=== PATIENT | male | born 1985 | race Two or more races ===

== ENCOUNTER 2024-02-20 10:38 | Emergency (ER) | payer OTHER ==
[2024-02-20] MEDS: Lidocaine 2% 5 ML SDV INJECT ONE (11:00)
[2024-02-20] MEDS: Diphtheria,Pertussis(Acell),Tetanus Vaccine 0.5 ML Syringe IM ONE (11:00)
[2024-02-20] MEDS: Bacitracin Oint 1 GM U/D Packet TOP ONE (11:12)
[2024-02-20] MEDS ORDERED: Sodium Chloride 0.9% 2.5 ML Syringe FLUSH PRN (11:26)
[2024-02-20] MEDS: ceFAZolin 2 GM in Sodium Chloride 0.9% 50 ML IV ONE (11:36)
[2024-02-20] MEDS: Sodium Chloride 0.9% 10 ML Syringe FLUSH PRN (11:36)
== END 2024-02-20 12:20 | disposition home or self-care (01) ==
LOC: MW.ED 10:38
DX: S62.627A Displaced fracture of middle phalanx of left little finger, initial encounter for closed fracture (principal); S61.217A Laceration without foreign body of left little finger without damage to nail, initial encounter; Z23 Encounter for immunization; Z75.8 Other problems related to medical facilities and other health care; W23.1XXA Caught, crushed, jammed, or pinched between stationary objects, initial encounter; Y99.0 Civilian activity done for income or pay
CPT/HCPCS: 12001; 26725; 73130; 90471; 90715; 96365; 99283; J0690; J3490